=== PATIENT | male | born 1960 | race Caucasian/White ===

== ENCOUNTER 2018-12-27 11:59 | Day surgery (SDC) | payer OTHER ==
[2018-12-26 09:11] VITALS: BMI 36.2
[~2018-12-27 11:59] MED LIST: LACTATED RINGERS 1,000 ML IV SCH
[2018-12-27 12:18] VITALS: TEMP 97.8
[2018-12-27] MEDS ORDERED: LACTATED RINGERS 1,000 ML IV ONE (12:18)
[2018-12-27] MEDS ORDERED: LIDOCAINE 1% 20 ML VIAL (10MG/ML) FOR IV START INTRADERMA ONE (12:19)
[2018-12-27] MEDS ORDERED: PROPOFOL 10 MG/ML 20 ML VIAL IV ONE (12:48)
[2018-12-27] MEDS ORDERED: LIDOCAINE 1% INJ 10MG/ML (20 ML MDV) ONE (12:48)
--- NOTE | 2018-12-27 13:06 | P.PCN ---
Date of Procedure: 12/27/18 Description of Procedure: BRIEF HISTORY: Patient is a 58-year-old, pleasant, male who presents for outpatient EGD. The patient has a history of GERD he is on Protonix 40 mg daily reports symptoms for the past 3-4 months consisting of daily heartburn, acid regurgitation and coughing spells. PROCEDURE PERFORMED: Esophagogastroduodenoscopy with biopsy. PREOPERATIVE DIAGNOSIS: GERD with esophagitis. ESTIMATED BLOOD LOSS: Minimal. IV sedation per anesthesia. PROCEDURE: After informed consent was obtained, the patient was brought into the endoscopy unit. IV sedation was administered by Anesthesia under continuous monitoring. Initially the Olympus GIF-190 video endoscope was inserted into the mouth. Esophagus intubated without any difficulty. It was gradually advanced into the stomach and duodenum and carefully examined. The bulb and the second part of the duodenum appeared normal, with biopsies taken. The scope at this time was withdrawn to the stomach, adequately insufflated with air, and upon careful examination, mucosa of the antrum, body, cardia and the fundus appeared normal, except for linear erythema in the antrum and body of the stomach suggestive of moderate gastritis biopsies taken. The scope was then withdrawn into the esophagus. A 2 cm hiatal hernia was noted. The GE junction was located at 39 cm from the incisors, with biopsies taken. The esophagus appeared normal, with mid esophageal biopsies taken. There were no erosions or ulcerations seen and the patient tolerated the procedure well. IMPRESSION: 1. Moderate gastritis antrum and body, biopsied. 2. Biopsies of the duodenum, GE junction and mid esophagus. 3. Small hiatal hernia. RECOMMENDATIONS: The findings of this examination were discussed with the patient and his . Okay to continue PPI therapy at this time with consideration for increasing dosing to twice daily. Await pathology from biopsies. Follow up with gastroenterology clinic as previously scheduled.
[2018-12-27] MEDS ORDERED: IBUPROFEN 200 MG TAB PO ONE (13:35)
[2018-12-27 14:00] VITALS: BP 142/77; PULSE 88; RESP 20
== END 2018-12-27 13:55 | disposition home or self-care (01) ==
LOC: ORWHC2ENDO 11:59
PROVIDERS: ATTEND Internal Medicine
DX: K21.0 Gastro-esophageal reflux disease with esophagitis (principal); K29.50 Unspecified chronic gastritis without bleeding; K44.9 Diaphragmatic hernia without obstruction or gangrene; Z88.8 Allergy status to other drugs, medicaments and biological substances; G47.33 Obstructive sleep apnea (adult) (pediatric); Z99.89 Dependence on other enabling machines and devices; Z79.51 Long term (current) use of inhaled steroids; Z79.899 Other long term (current) drug therapy
CPT/HCPCS: 88305; 43239; J2001; J2704

== ENCOUNTER → 2019-04-15 | Outpatient (CLI) | payer OTHER ==
--- NOTE | 2019-04-15 10:37 | CT ---
EXAMINATION TYPE: CT chest wo/w con DATE OF EXAM: 04/15/2019 COMPARISON: NONE HISTORY: abn lung field, hiatal hernia CT DLP: 1280.1 mGycm. Automated Exposure Control for Dose Reduction was Utilized. TECHNIQUE: CT scan of the thorax is performed following without and with IV Contrast, patient inject ed with 100 mL of Isovue 300. FINDINGS: LUNGS: Left greater than right bibasilar linear scarring and/or atelectasis. No suspicious nodules or masses. No pleural effusion or pneumothorax. MEDIASTINUM: There are no greater than 1 cm hilar or mediastinal lymph nodes. No cardiomegaly or pe ricardial effusion is seen. Large hiatal hernia posterior to the heart containing tiny mesenteric ve ssels and intraperitoneal fat. OTHER: Liver is diffusely low dense consistent with fatty infiltration. IMPRESSION: Large hiatal hernia containing tiny mesenteric vessels and intra-abdominal fat. Mass effe ct on distal esophagus is present. No suspicious acute pulmonary process.
== END | disposition home or self-care (01) ==
LOC: RADCTMAIN 08:08
DX: K44.9 Diaphragmatic hernia without obstruction or gangrene (principal); R22.9 Localized swelling, mass and lump, unspecified
CPT/HCPCS: 71270; Q9967

== ENCOUNTER → 2019-06-07 | Outpatient (CLI) | payer OTHER ==
--- NOTE | 2019-06-07 11:59 | FL ---
EXAMINATION TYPE: FL barium swallow DATE OF EXAM: 06/07/2019 CLINICAL HISTORY: Gastroesophageal reflux TECHNIQUE: A double contrast esophagram is performed utilizing air and barium. A total of 58 second s of fluoroscopic time was utilized during procedure. 35 fluoroscopic images were saved. COMPARISON: CT chest dated 04/15/2019 FINDINGS: The esophagus shows normal motility and emptying into the stomach. No evidence of strictur e noted. There is a small hiatal hernia that is seen on supine imaging only indicating a sliding-type hernia. Diaphragmatic defect was seen on the prior CT of 04/15/2019. Moderate degree gastroesophageal reflux was seen during real time performance of this study. IMPRESSION: 1. Small sliding hiatal hernia seen on supine imaging only. 2. Moderate degree gastroesophageal reflux.
== END | disposition home or self-care (01) ==
LOC: RADUSWWP 09:53
PROVIDERS: ATTEND Surgery Plastic and Reconstructive Surgery
DX: K21.9 Gastro-esophageal reflux disease without esophagitis (principal); K44.9 Diaphragmatic hernia without obstruction or gangrene; Z88.8 Allergy status to other drugs, medicaments and biological substances; Z88.3 Allergy status to other anti-infective agents
CPT/HCPCS: 74220

== ENCOUNTER → 2019-06-12 | Outpatient (CLI) | payer OTHER ==
--- NOTE | 2019-06-12 09:33 | US ---
EXAMINATION TYPE: US gallbladder DATE OF EXAM: 06/12/2019 COMPARISON: Chest CT April 15, 2019. CLINICAL HISTORY: K80.20 Gallstones, K21.9 gerd. Acid reflux, chest pressure. EXAM MEASUREMENTS: Liver Length: 19.0 cm Gallbladder Wall: 0.2 cm CBD: 0.4 cm Right Kidney: 12.2 x 5.5 x 5.8 cm Pancreas: visualized portions wnl, partially obscured by overlying midline bowel gas Liver: enlarged, attenuating, heterogeneous Gallbladder: wnl Evidence for sonographic Avalos's sign: no CBD: visualized portions wnl, limited by overlying bowel gas Right Kidney: 0.5cm echogenic focus inferior pole Visualized portions of pancreas shows no suspicious mass or ductal dilatation. Visualized liver is he terogeneously hyperechoic corresponding to fatty infiltration seen on recent CT. Limited images right kidney showed no hydronephrosis. Gallbladder seen with fold or phrygian cap but no shadowing mobile gallstones. Towards end of study technologist marquez nonspecific 4 to 5 mm nonshadowing hyperechoic fo cus. IMPRESSION: No gallstones or ultrasound evidence for acute cholecystitis. Diffuse fatty infiltration of liver redemonstrated.
== END | disposition home or self-care (01) ==
LOC: RADUSWWP 08:57
PROVIDERS: ATTEND Surgery Plastic and Reconstructive Surgery
DX: K76.0 Fatty (change of) liver, not elsewhere classified (principal); Z88.8 Allergy status to other drugs, medicaments and biological substances; Z88.3 Allergy status to other anti-infective agents
CPT/HCPCS: 76705